=== PATIENT | female | born 1950 | race Caucasian/White ===

== ENCOUNTER 2024-01-12 16:58 | Outpatient (CLI) | payer OTHER, SELFPAY | END 2024-01-12 16:59 | disposition home or self-care (01) | LOC: AMB 01-14 01:40 | PROVIDERS: Visit Provider Emergency Medicine | DX: R53.1 Weakness (principal) | CPT/HCPCS: A0998 ==

== ENCOUNTER 2024-01-13 09:50 | Outpatient (CLI) | payer OTHER, SELFPAY | END 2024-01-13 09:51 | disposition home or self-care (01) | LOC: AMB 01-29 06:17 | PROVIDERS: Visit Provider Family Medicine | DX: R06.09 Other forms of dyspnea (principal) | CPT/HCPCS: A0998 ==

== ENCOUNTER 2024-02-06 22:09 | Outpatient (CLI) | payer OTHER, SELFPAY | END 2024-02-06 22:10 | disposition home or self-care (01) | LOC: AMB 02-09 21:40 | PROVIDERS: Visit Provider Emergency Medicine Emergency Medical Services | DX: R41.82 Altered mental status, unspecified (principal); R47.81 Slurred speech | CPT/HCPCS: A0425; A0429 ==

== ENCOUNTER 2024-09-03 18:28 | Outpatient (CLI) | payer OTHER, SELFPAY | END 2024-09-03 18:29 | disposition home or self-care (01) | LOC: AMB 09-06 11:24 | PROVIDERS: Visit Provider Emergency Medicine Emergency Medical Services | DX: I46.9 Cardiac arrest, cause unspecified (principal) | CPT/HCPCS: A0429 ==